=== PATIENT | female | born 1940 | race Caucasian/White ===

== ENCOUNTER 2018-11-07 09:52 | Emergency (ER) | payer OTHER, MEDICARE ==
[~2018-11-07] VITALS: Ht 162.6 cm; Wt 70.0 kg
[2018-11-07 09:57] VITALS: BP 117/68
[2018-11-07] MEDS ORDERED: SITA50TA PO (10:13)
[2018-11-07] MEDS ORDERED: CRESTOR (10:13)
[2018-11-07] MEDS ORDERED: METF500T17 PO (10:13)
[2018-11-07] MEDS ORDERED: LISI-167 PO (10:13)
== END 2018-11-07 11:47 | disposition home or self-care (01) ==
LOC: ED 11:44
DX: S20.212A Contusion of left front wall of thorax, initial encounter (principal); E11.9 Type 2 diabetes mellitus without complications; Z85.3 Personal history of malignant neoplasm of breast; W01.0XXA Fall on same level from slipping, tripping and stumbling without subsequent striking against object, initial encounter; Y93.89 Activity, other specified; Y92.009 Unspecified place in unspecified non-institutional (private) residence as the place of occurrence of the external cause; Y99.8 Other external cause status
CPT/HCPCS: 99283